=== PATIENT | male | born 1980 | race Caucasian/White ===

== ENCOUNTER → 2017-02-01 | Outpatient (CLI) | payer BC | LOC: COL.RAD 08:30 | DX: M54.2 Cervicalgia (principal) | CPT/HCPCS: A9585; Q9967 ==

== ENCOUNTER → 2017-02-02 | Outpatient (CLI) | payer BC | LOC: ZCOL.LAB 14:47 | DX: Z01.812 Encounter for preprocedural laboratory examination (principal); Z86.14 Personal history of Methicillin resistant Staphylococcus aureus infection ==

== ENCOUNTER → 2017-04-28 | Outpatient (REF) | LOC: WSOH 09:21 | DX: Z02.89 Encounter for other administrative examinations (principal) ==